=== PATIENT | female | born 1940 | race African-American/Black ===

== ENCOUNTER 2021-02-01 15:41 | Emergency (ER) | payer MEDICARE ==
[~2021-02-01] VITALS: Ht 170.2 cm; Wt 72.7 kg
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
[2021-02-01 17:49] VITALS: BP 152/75
--- NOTE | 2021-02-03 16:49 | HP ---
ADMIT DATE: 02/01/2021 HISTORY OF PRESENT ILLNESS: The patient is referred by Dr. Carrillo because of anal mass. Apparently, she found this and went to the doctor who sent her to me. She has no symptoms and has not had pain. PAST MEDICAL HISTORY: Shows normal childhood diseases. No high blood pressure, TB, asthma or diabetes. MEDICATIONS: She only takes I think fish oil, but no other medicines for diseases that she is aware of. ALLERGIES: She has no allergies. FAMILY HISTORY: Noncontributory. REVIEW OF SYSTEMS: Basically negative except for right shoulder pain and states to have gas at times. PHYSICAL EXAMINATION: GENERAL: Shows an alert female in no acute distress. HEAD, EYES, EARS, NOSE AND THROAT: Grossly normal. Trachea midline. NECK: No goiter was noted. CHEST: Clear to auscultation bilaterally. HEART: Normal heart tones with a rate of 70 beats per minute. It was regular with no murmurs. ABDOMEN: Grossly normal. EXTREMITIES: Normal except for pain in the right shoulder. Examination of the anus showed a mass about 1.5 to 2 cm mass to the left of the midline, laterally at the anus. That was not tender. There was no redness or erythema. It was on the mucosa, but not ulcerated and under the skin. No other abnormalities were noted. She states to have had colonoscopy in the distant past. IMPRESSION: 1. Arthritis, right shoulder. 2. Mass of the anus. I spoke to the patient at length and she wishes to have this mass removed. We will plan to remove it under general anesthesia as she may also have internal hemorrhoids. I am not certain that this is a hemorrhoid, but I think excision and pathologic examination is warranted. We will proceed. HENRY/NANDINI DR: [place] TID: [id number]
== END 2021-02-01 17:49 | disposition home or self-care (01) ==
LOC: ER 15:41
DX: H53.8 Other visual disturbances (principal)
CPT/HCPCS: 82962; 99283